=== PATIENT | female | born 1990 | race Caucasian/White ===

== ENCOUNTER → 2020-01-10 08:41 | Outpatient (CLI) | payer OTHER, SELFPAY ==
[2020-01-10 11:25] LABS: COVID19 -Nasal RAPID Negative (Negative)
== END ==
PROVIDERS: PCP Student in an Organized Health Care Education/Training Program; Visit Provider Physician Assistant
DX: Z11.59 Encounter for screening for other viral diseases (principal)
CPT/HCPCS: 87635

== ENCOUNTER 2020-01-12 10:18 | Day surgery (SDC) | payer OTHER, SELFPAY ==
[2020-01-12] VITALS (9 sets, daily range): BP systolic 95–110; BP diastolic 54–71; PULSE 52–61; RESP 12–19; TEMP 36.6–37.1; O2SAT 98–100; BMI 26.6
--- NOTE | 2020-01-12 | PATH_ITS ---
[facility] Accession Number: [id number] . 01 Material submitted: . PART A: colon - ASCENDING COLON POLYP PART B: colon - TRANSVERSE COLON POLYP . 01 Clinical history: . DX COLONOSCOPY . 02 Diagnosis: A. Ascending Colon, Polyp, Biopsy: Sessile serrated adenoma. . B. Transverse Colon, Polyp, Biopsy: Tubular adenoma. MRV 01/17/2020 1248 Local . 02 Electronically signed: . Dana Mckenzie MD, Pathologist NPI- [id number] . 01 Gross description: . A. Received in formalin, labeled ascending colon polyp, and consists of multiple solares-pink fragments of soft tissue measuring 1.0 x 0.8 x 0.2 cm in aggregate. The specimen is entirely submitted in cassette A1. B. Received in formalin, labeled transverse colon polyp, and consists of a 0.3 x 0.3 x 0.2 cm solares-pink fragment of soft tissue, which is entirely submitted in cassette B1. ([id number]) /MRV 01/13/2020 1541 Local . 02 Pathologist provided ICD-10: D12.2, D12.3 . 02 CPT . 532185, 188934 Performed at: 01 [facility] [address] [facility], [place], [place] [id number] MD Jesse Hammond MD Phone: [phone] Performed at: 02 [facility] [place] [address] [place], [place] [id number] MD Dana Mckenzie MD Phone: [phone]
[2020-01-12] MEDS: SODIUM CHLORIDE 0.9% 1,000 ML 70 ML IV (10:59)
[2020-01-12] MEDS: ONDANSETRON 4 MG/2 ML INJ IV (11:05)
--- NOTE | 2020-01-12 11:47 | PM.HP.1 ---
History of Present Illness History of Present Illness Date Patient Seen: 01/12/20 Time Patient Seen: 11:47 Chief complaint: DX COLONOSOCPY Narrative: Patient is a very pleasant 29-year-old female who presented for colonoscopy due to personal history of advanced adenoma on colonoscopy 3 years ago. Patient History Family & Social History Social History: household members spouse Tobacco & Substance use: Tobacco type cigarettes Smoking Status Former smoker Substance Use Type does not use Meds Home Medications and Allergies Allergies Allergy/AdvReac Type Severity Reaction Status Date / Time No Known Drug Allergies Allergy Verified 01/12/20 08:02 Review of Systems Review of Systems ROS: Yes All systems reviewed with the patient and are negative except as otherwise documented Exam Vital Signs (past 8 hours): - 01/12/20 10:37 Temperature 98.5 F Pulse Rate 54 L Respiratory Rate 16 Blood Pressure 108/69 Pulse Oximetry 99 Oxygen Delivery Method Room Air Const General: cooperative, healthy appearing, comfortable, well developed and well groomed Nutritional Appearance: average body habitus Orientation: alert, awake and oriented x3 HENMT Head: normocephalic and atraumatic Resp Effort & Inspection: normal respiratory effort and able to speak in complete sentences Auscultation: clear to auscultation bilaterally Cardio Rate: regular rate Rhythm: regular rhythm Heart Sounds: S1 normal and S2 normal GI Palpation: soft Auscultation: normal bowel sounds Assessment & Plan Assessment & Plan narrative: 1. Personal history of advanced adenoma -colonoscopy today further recommendations to follow
[2020-01-12] MEDS: fentaNYL 250 MCG/5 ML INJ IV (11:51)
[2020-01-12] MEDS: MIDAZOLAM 5 MG/5 ML VIAL IV (11:51)
--- NOTE | 2020-01-12 12:16 | PM.OP.ENDO ---
Operative Date/Time/Diagnoses Date of procedure: 01/12/20 Time of procedure: 11:51 Procedure Notes Procedure in detail: Surgeon: Marlee Waterman DO Procedure: Colonoscopy with polypectomy Preoperative diagnosis: 1. Personal history of advanced adenoma (tubulovillous adenoma) in the right colon Postoperative diagnosis: 1. 1 cm ascending colon polyp 2. 3 mm polyp transverse colon 3. Grade 1 mild internal hemorrhoids Medications: Conscious sedation using 7 mg IV of Midazolam and 125 mcg IV of Fentanyl Preanesthesia Assessment An H and P was performed/updated and the Px?s ASA class is 1. The procedure was discussed in detail with the patient. The potential risks and complications including infection, bleeding, missed lesions, perforation, need for surgery in case of perforation, prolonged hospital stay, and were explained. A brief question and answer period was allotted and once all questions were answered, informed consent was obtained. The patient was brought back to the procedure room and placed on standard monitoring. The patient?s vital signs were monitored continuously throughout the entire procedure. Prior to starting, a timeout was performed to confirm the patient?s identity, allergies, medications, and procedure. Procedure in detail The patient was placed in left lateral decubitus position and once adequate sedation was obtained a SHANNAN was performed. The digital rectal examination did not reveal any palpable lesions. The tip of the colonoscope was placed in the anal canal and advanced with some difficulty due to redundant tortuous colon, manual pressure was applied scope portion and loop reduction was performed. We were able to advance all the way to the cecum which was identified by the appendiceal orifice and the ileocecal valve. Careful examination of all prado of the colon was performed with irrigation of any residual stool. A 2nd pass of the ascending colon was completed. -1 cm polyp in ascending colon removed with hot snare -3 mm polyp transverse colon removed with Jumbo forceps -grade internal hemorrhoids noted on retroflexion The patient tolerated the procedure well and will be brought back to the recovery area to be discharged once criteria are met. The prep was judged to be good/excellent and adequate to identify polyps less than 5 mm. The withdrawal time was 10 minutes. The total physician intraservice time was 23 minutes. Complications There were no complications and estimated blood loss was minimal. Recommendations: Resume previous diet Continue outPx medications Follow up pathology results Repeat colonoscopy timing will be determined after pathology results are reviewed An emergency contact number was given to the patient for any complications related to the procedure
--- NOTE | 2020-01-12 17:00 | SUR.PHASEII ---
1320 Drowsy, denies pain/nausea, dizziness. VSS.
== END 2020-01-12 13:27 | disposition home or self-care (01) ==
PROVIDERS: PCP Student in an Organized Health Care Education/Training Program; Referring Provider Student in an Organized Health Care Education/Training Program; Visit Provider Student in an Organized Health Care Education/Training Program
PROC: 0DJD8ZZ Inspection of Lower Intestinal Tract, Via Natural or Artificial Opening Endoscopic (ICD-10-PCS; CPT 45378; principal; 2020-01-12 11:30)
DX: Z12.11 Encounter for screening for malignant neoplasm of colon (principal); Z86.010 Personal history of colon polyps; K64.0 First degree hemorrhoids; D12.2 Benign neoplasm of ascending colon; D12.3 Benign neoplasm of transverse colon
CPT/HCPCS: 45385; 45380; J2250; J2405; J3010

== ENCOUNTER → 2021-05-14 12:19 | Outpatient (CLI) | payer OTHER, SELFPAY ==
--- NOTE | 2021-05-14 | DI.MRI.S_ITS ---
PROCEDURE: MR KNEE LT WO CON INDICATIONS: Monoarthritis, not elsewhere classified, left knee TECHNIQUE: Noncontrast sagittal PD fast spin echo and T2 fast spin echo with fat saturation, sagittal 3-D FLASH with fat saturation; coronal T1 spin echo and PD fast spin echo with fat saturation, and axial PD fast spin echo with fat saturation through the knee. COMPARISON: None. FINDINGS: Image quality: Excellent. Menisci: Blunting of the free edge with mild extrusion of the medial meniscus, compatible with tear and/or meniscectomy change. The lateral meniscus is intact. Cruciate ligaments: The posterior cruciate ligament is intact. Deficiency of the ACL graft, compatible with disruption. Medial structures: The medial collateral ligament appears intact. Visualized portions of the pes anserinus tendons appear normal. Trace bursal fluid. Lateral structures: The lateral collateral ligament, long and short heads of the biceps femoris tendon appear intact. The popliteus tendon appears intact. The iliotibial band/lateral retinaculum exhibits a wavy contour but is intact. Anterior structures: The quadriceps and patellar tendons appear intact. Patellar alignment is normal. No femoral trochlear dysplasia or ventral trochlear prominence. No edema in the infrapatellar fat pad. Bones and cartilage: Tricompartment osteophytosis. No evidence of fracture. Flattening of the femoral head contours with fibrocystic change of the lateral femoral condyle, compatible with advanced osteoarthrosis. Signal heterogeneity and thinning of the medial and lateral compartment hyaline cartilage. Signal heterogeneity with areas of fissuring in the patellofemoral compartment hyaline cartilage. Joint space: Small physiologic knee joint fluid. No Powers's cyst. A 3.2 x 0.8 cm T2 hyperintense lesion is seen along the course of the popliteus (sagittal series-16, which may reflect a ganglion. IMPRESSION: 1. Deficiency of the ACL graft, compatible with disruption. 2. Extrusion of the medial meniscus as detailed above, which may reflect tear and/or meniscectomy change. 3. Cystic-appearing lesion along the course of the popliteus, which may reflect a ganglion. Cystic adventitial change cannot be excluded. 4. At least moderate arthrosis of the knee, most prominent in the lateral compartment. 5. Mild pes anserine bursitis. Dictated by: Jon Martinez M.D. on 05/14/2021 at 13:07 Approved by: Jon Martinez M.D. on 05/14/2021 at 13:19
== END ==
PROVIDERS: PCP Student in an Organized Health Care Education/Training Program
DX: M13.162 Monoarthritis, not elsewhere classified, left knee (principal); M70.52 Other bursitis of knee, left knee
CPT/HCPCS: 73721

== ENCOUNTER → 2024-06-04 17:36 | Outpatient (CLI) | payer OTHER, SELFPAY ==
--- NOTE | 2024-06-04 17:38 | DI.RAD.S_ITS ---
PROCEDURE: XR ABDOMEN MIN 2V INDICATIONS: Possible constipation TECHNIQUE: 2 views of the abdomen were acquired. COMPARISON: None. FINDINGS AND IMPRESSION: Moderate overall fecal loading. No specific radiographic signs for obstruction. Suspected moderate rectal stool ball is seen. Mild degenerative osseous changes. Dictated by: Rosas Gonzalez M.D. on 06/05/2024 at 8:57 Approved by: Rosas Gonzalez M.D. on 06/05/2024 at 8:58
== END ==
PROVIDERS: PCP Registered Nurse; Referring Provider Nurse Practitioner Family; Visit Provider Nurse Practitioner Family
DX: R10.9 Unspecified abdominal pain (principal)
CPT/HCPCS: 74019